=== PATIENT | male | born 1950 | race Caucasian/White ===

== ENCOUNTER 2025-01-14 00:33 | Emergency (ER) | payer MEDICARE, SELFPAY ==
[2025-01-14 00:35] VITALS: BP 146/86
--- NOTE | 2025-01-14 00:46 | ED.GENMED ---
History of Present Illness
General
Chief Complaint: Catheter/Tube Problem
Source: patient
Exam Limitations: none
Time Seen by Provider: 01/14/25 00:43
Nursing documentation reviewed up to this point in time: agreed with
History of Present Illness
History of Present Illness:
This is a 74-year-old male with a past medical history of BPH status post TURP with indwelling catheter, PE on Coumadin, arthritis, depression, anxiety, essential tremors, who reports to the ER today with concerns of leaking from his urinary
catheter bag. He reports that he gets his catheter changed once a month. He follows with a urologist in [place] and is visiting the state because his sister lives here. Patient reports that he tried taping over the bag but is concerned because
he has a 12-hour drive tomorrow and his appointment to get a change is not for 2 weeks or so. Currently, he denies pelvic pain or abdominal pain, denies recent change in urinary quality. He denies fevers or chills.
Review of Systems
Review of Systems
All Other Systems: ROS reviewed and negative except as documented in HPI and ROS
Phy Exam
General Physical Exam
General Presentation: well appearing and no apparent distress
General age: appears stated age
General Skin: warm and dry
General Habitus: normal
General Mental: alert
General Hydration: appears well hydrated
ENT Exam
ENT Exam: EOMI
Eye Exam
Eye Exam: PERRL and EOMI
Cardiovascular Exam
Cardiovascular Exam: regular rate/rhythm, no edema and no murmur
Pulmonary Exam
Pulmonary Exam: lungs clear and no respiratory distress
Gastrointestinal Exam
Gastrointestinal Exam: normal bowel sounds, non tender, soft and non distended
External Findings: other (indwelling colon catheter)
Neurological Exam
Neurological Exam: alert, oriented x3 and speech normal
Course
Orders/Labs/Results
Orders:
Orders
01/14/25 00:54
Catheter [Colon Placement- Treatment] ONCE
Reason for insertion: Acute Retention
01/14/25 01:30
Lidocaine 2% [Lidocaine Uro-Jet 2%] 1 syringe .ROUTE .[facility]
01/14/25 01:39
Urinalysis Reflex To Culture Urgent
Date Specimen was Collected: 01/14/25
Time Specimen was Collected: 01:06
Urine Microscopic Reflex Cult Urgent
Urine Culture Urgent
YASMEEN Source: U
Specimen Description:
Date Specimen was Collected: 01/14/25
Time Specimen was Collected: 01:06
01/14/25 02:01
Fosfomycin [Monurol] 3 gm PO ONCE ONE
Abnormal Lab Results
01/14/25
01:39
Ur Occult Blood Reflex 4+ A
(Negative)
Urine Nitrite (Reflex) Positive A
(Negative)
Leukocyte Esterase Rfl 3+ A
(Negative)
Urine RBC 16-20 A /HPF
(0-2)
Urine WBC (Reflex) >100 A /HPF
(0-5)
Urine Bacteria (Reflex) Few A
(Negative)
Urine Albumin (Reflex) 3+ A
(Neg - Trace)
Vital Signs
Initial and Last Documented VS:
Initial Vital Signs
Temp Pulse Resp BP Pulse Ox
97.8 F 72 20 146/86 96
01/14/25 00:35 01/14/25 00:35 01/14/25 00:35 01/14/25 00:35 01/14/25 00:35
Last Documented Vital Signs
Temp Pulse Resp BP Pulse Ox
97.8 F 75 14 121/75 95
01/14/25 00:35 01/14/25 02:18 01/14/25 02:18 01/14/25 02:18 01/14/25 02:18
MDM/Problems Addressed
Differential Diagnosis Includes:
ddx include urinary catheter dysfunction, catheter
MDM/Problems Addressed:
74-year-old male with past medical history of BPH with chronic indwelling Colon catheter presents the ER today with concerns of leakage from his Colon catheter bag. He reports that he gets his bag changed once a month and reports that this has
happened to him before and resolved with bag change. He tried taping up the bag but it was still leaking. On exam he is well-appearing in no acute distress. He is afebrile, he has no abdominal tenderness, he denies pelvic pain. There is sediment
noted in the urinary catheter with yellow urine. Urinalysis does show leukocyte esterase, nitrates, and white blood cells. There is no urinalysis for comparison. Will treat with one-time dose of Monurol and patient will follow-up with his
urologist in [place]. Colon catheter replaced. Patient stable for discharge.
*Pulse Oximetry
SaO2: 96
Oxygen Mode of Delivery: Room air
Patient hypoxic: no
*Critical Care Note
Total Time (30-74mins, 75-104mins- exclusive of procedures): Not Applicable
ED Attending Note
-
Portions of this chart may have been created with voice recognition software.� Occasional wrong word or��sound alike� substitutions may have occurred due to the inherent limitations of voice recognition software.
Discharge Plan
Departure
Patient Disposition: Home (Routine Discharge)
Date of Disposition: 01/14/25
Time of Disposition: 02:12
Patient with high blood pressure during this ER visit?: Yes
Condition: Good
Discharge Problem:
Encounter for Colon catheter replacement, Abnormal urinalysis
Instructions: How to Care for Your Colon Catheter, Male, BLOOD PRESSURE
Prescriptions:
No Action
multivitamin Tablet
1 tab PO DAILY
atorvastatin [Lipitor] 40 mg Tablet
40 mg PO DAILY
primidone 50 mg Tablet
50 mg PO BID
trazodone 50 mg Tablet
75 mg PO HS
sertraline 100 mg Tablet
200 mg PO QPM
acetaminophen [Tylenol Extended Release] 650 mg Tablet Extended Release
1,300 mg PO TID
tamsulosin [Flomax] 0.4 mg Capsule
0.4 mg PO BID
warfarin 5 mg Tablet
5 mg PO DAILY
docusate sodium [Stool Softener] 100 mg Capsule
200 mg PO TID PRN (Reason: constipation)
propranolol 20 mg Tablet
60 mg PO BID
cholecalciferol (vitamin D3) [Vitamin D3] 25 mcg (1,000 unit) Capsule
25 mcg PO DAILY
bupropion HCl [Wellbutrin SR] 200 mg Tablet Sustained-Release 12 Hr
200 mg PO BID
fenofibrate nanocrystallized [Tricor] 48 mg Tablet
48 mg PO DAILY
levothyroxine 25 mcg Capsule
25 mcg PO DAILY
Vraylar 1.5 mg Capsule
0.75 mg PO DAILY
[place] 3
1,000 mg PO DAILY
Referrals:
PRIVATE,PHYSICIAN [Family Provider, Internal Medicine]
Activity Restrictions/Additional Instructions:
You received a one time dose of Monuril, an antibiotic today. Please call your urologist to schedule an appointment for follow up.
PLEASE RETURN TO THE ER SHOULD YOU DEVELOP CHEST PAIN, SHORTNESS OF BREATH, FEVERS OR CHILLS, PELVIC PAIN, ABDOMINAL PAIN, BLOODY DRAINAGE FROM YOUR CATHETER, OR ANY OTHER SIGNS OR SYMPTOMS WORRISOME TO YOU.
Interventions
Interventions:
*Risk Screen - Suicide Last Done: 01/14/25 00:35
*General Assessment Last Done: 01/14/25 01:10
*Neglect/Abuse Screening Last Done: 01/14/25 00:35
*ED- Fall Risk Assessment Last Done: 01/14/25 01:10
*ED COVID-19 Vaccine History Last Done: 01/14/25 02:06
*ED Influenza Vaccine History Last Done: 01/14/25 02:06
*Nursing Disposition Last Done: 01/14/25 02:35
[facility] Last Done: 01/14/25 01:43
ED-Male Genitourinary Assessment Last Done: 01/14/25 01:43
Discharge Date and Time
Discharge Date/Time: 01/14/25 02:35
Print Language: GUAMANIAN
[2025-01-14 01:10] VITALS: BMI 36.4
[2025-01-14 01:46] LABS: Urine Character Slightly Cloudy (Clear)
[2025-01-14 01:53] LABS: Urine Red Blood Cell 16-20 /HPF (0-2)
--- NOTE | 2025-01-14 01:53 | EDRN ---
Pt arrived with a 16FR colon catheter with the drainage bag in a ziplock bag. Colon was last changed 3 weeks ago. Pt has had a colon for 13 months. Pt says he was catheterizing himself for a little while but he got a uti so the urologist put the
colon back in. Pt gets the colon changed regularly. Pt concerned he will be driving tomorrow and his catheter/bag have been leaking. Initially, this RN was going to place a 14FR colon however pt requested 16FR like he has. This RN attempted to
insert 16FR without success, repeated kinking of the tube the last 1/3 of colon insertion. Urojet used. 14FR colon placed with urine drainage. Specimen sent.
[2025-01-14 01:54] LABS: Urine White Cell >100 /HPF (0-5)
--- NOTE | 2025-01-14 02:08 | EDRN ---
Pt has a stat lock on his upper L leg and has padded his thigh with bandages/tape to ensure the catheter does not rub against his skin. Pt declined changing stat lock but asked for an extra so he can do it at home if needed or when he sees the
urologist - stat lock provided.
[2025-01-14] MEDS: MONUROL 3 GM PO (02:15)
[2025-01-14 02:18] VITALS: BP 121/75
--- NOTE | 2025-01-14 02:25 | EDRN ---
Pt declined leg bag stating he has used them in the past but prefers to not change his drainage bag.
== END 2025-01-14 02:35 | disposition home or self-care (01) ==
LOC: EMR 00:33
PROVIDERS: Physician Assistant; EMERGENCY PHYSICIAN Student in an Organized Health Care Education/Training Program
DX: Z46.6 Encounter for fitting and adjustment of urinary device (principal); R82.90 Unspecified abnormal findings in urine; R03.0 Elevated blood-pressure reading, without diagnosis of hypertension; N40.1 Benign prostatic hyperplasia with lower urinary tract symptoms; R33.8 Other retention of urine; G25.0 Essential tremor; F41.9 Anxiety disorder, unspecified; F32.A Depression, unspecified; M19.90 Unspecified osteoarthritis, unspecified site; Z79.01 Long term (current) use of anticoagulants; Z86.711 Personal history of pulmonary embolism; Z90.79 Acquired absence of other genital organ(s)
CPT/HCPCS: 99283; 51702; 81003; 81015; 87086